=== PATIENT | male | born 1995 | race African-American/Black ===

== ENCOUNTER 2022-10-07 02:31 | Emergency (ER) | payer SELFPAY ==
[2022-10-07] MEDS ORDERED: KETOROLAC 30 MG/ML INJ ONE (03:03)
[2022-10-07 03:55] LABS: SARS-COV-2 RT PCR NEGATIVE (NEGATIVE)
[2022-10-07] MEDS ORDERED: METOCLOPRAMIDE 10 MG/2mL INJ ONE (04:16)
[2022-10-07] MEDS ORDERED: DIPHENHYDRAMINE 50 MG/ML VIAL ONE (04:16)
[2022-10-07] MEDS ORDERED: DIPHENHYDRAMINE 25 MG TAB/CAP ONE (04:19)
--- NOTE | 2022-10-07 04:46 | EDPHYS ---
Physician Documentation [facility] Name: Richy Chau Age: 27 yrs Sex: Male : 1995 Arrival Date: 10/07/2022 Time: 02:33 Bed 9 Private MD: ED Physician Marco Fritz HPI: 10/07 03:50 This 27 yrs old Black Male presents to ER via EMS with complaints of Chest pain. rt 03:50 The patient or guardian reports chest pain that is located primarily in the substernal rt area. The pain does not radiate. Associated signs and symptoms: Pertinent positives: cough, shortness of breath, Sore throat. The chest pain is described as aching. Duration: The patient or guardian reports a single episode, that is still ongoing. Modifying factors: The symptoms are alleviated by the symptoms are aggravated by cough, deep breath. Severity of pain: At its worst the pain was moderate. Patient presents to the ED with cough, pleuritic chest pain for about 3 to 4 days. Patient states that the symptoms have somewhat worsened tonight. He reports a sore throat, denies other acute complaints at this time. Symptoms are moderate in severity. No other aggravating alleviating factors.. Historical: - Allergies: 02:36 No Known Allergies; kd3 - Home Meds: 02:36 None [Active]; kd3 - PMHx: 02:36 None; kd3 - Immunization history:: Adult Immunizations up to date. - Social history:: Smoking status: unknown. - Family history:: not pertinent. ROS: 03:50 Constitutional: Negative for fever, chills, and weight loss, Eyes: Negative for injury, rt pain, redness, and discharge. 03:50 Abdomen/GI: Negative for abdominal pain, nausea, vomiting, diarrhea, and constipation, MS/Extremity: Negative for injury and deformity, Skin: Negative for injury, rash, and discoloration, Neuro: Negative for headache, weakness, numbness, tingling, and seizure, Psych: Negative for depression, anxiety, suicide ideation, homicidal ideation, and hallucinations. 03:50 ENT: Positive for rhinorrhea, sore throat. 03:50 Cardiovascular: Positive for chest pain, Negative for edema. 03:50 Respiratory: Positive for cough, shortness of breath. Exam: 03:50 Constitutional: This is a well developed, well nourished patient who is awake, alert, rt and in no acute distress. Head/Face: Normocephalic, atraumatic. Eyes: Pupils equal round and reactive to light, extra-ocular motions intact. Lids and lashes normal. Conjunctiva and sclera are non-icteric and not injected. Cornea within normal limits. Periorbital areas with no swelling, redness, or edema. ENT: Nares patent. No nasal discharge, no septal abnormalities noted. Tympanic membranes are normal and external auditory canals are clear. Oropharynx with no redness, swelling, or masses, exudates, or evidence of obstruction, uvula midline. Mucous membranes moist. Neck: Trachea midline, no thyromegaly or masses palpated, and no cervical lymphadenopathy. Supple, full range of motion without nuchal rigidity, or vertebral point tenderness. No Meningismus. Chest/axilla: Normal chest wall appearance and motion. Nontender with no deformity. No lesions are appreciated. Cardiovascular: Regular rate and rhythm with a normal S1 and S2. No gallops, murmurs, or rubs. Normal PMI, no JVD. No pulse deficits. Respiratory: Ankle wheezes heard, no respiratory distress Abdomen/GI: Soft, non-tender, with normal bowel sounds. No distension or tympany. No guarding or rebound. No evidence of tenderness throughout. Skin: Warm, dry with normal turgor. Normal color with no rashes, no lesions, and no evidence of cellulitis. MS/ Extremity: Pulses equal, no cyanosis. Neurovascular intact. Full, normal range of motion. Neuro: Awake and alert, GCS 15, oriented to person, place, time, and situation. Cranial nerves II-XII grossly intact. Motor strength 5/5 in all extremities. Sensory grossly intact. Cerebellar exam normal. Normal gait. Psych: Awake, alert, with orientation to person, place and time. Behavior, mood, and affect are within normal limits. 03:50 ECG was reviewed by the Attending Physician. rt Vital Signs: 02:34 BP 115 / 81; Pulse 99; Resp 19; Temp 99(O); Pulse Ox 100% on R/A; Weight 53.98 kg; kd3 03:30 BP 119 / 77; Pulse 82; Resp 20; Pulse Ox 98% on R/A; kd3 MDM: 02:43 Patient medically screened. rt 05:11 Differential diagnosis: acute myocardial infarction, acute pericarditis, chest wall rt pain, myocarditis, pulmonary embolus. Data reviewed: vital signs, lab test result(s). ED course: Presents to the ED with cough, congestion, headache. Symptoms are improving with treatment in the ED. He is found to be influenza A positive. Very low suspicion for pulmonary embolism. Do not suspect space-occupying lesion, advanced imaging of the brain is not indicated. Lumbar puncture is not indicated. Patient has no meningismus, very low suspicion for meningitis, encephalitis, subarachnoid hemorrhage. . 10/07 04:01 Order name: COVID-19/FLU A+B; Complete Time: 04:14 EDMS 10/07 02:50 Order name: EKG; Complete Time: 04:53 rt 10/07 02:50 Order name: EKG - Nurse/Tech; Complete Time: 02:56 rt EC:50 Rate is 77 beats/min. Rhythm is regular, Normal Sinus Rhythm. QRS [place] is Normal. [place] rt interval is normal. QRS interval is normal. QT interval is normal. No Q waves. T waves are Normal. No ST changes noted. Clinical impression: Normal ECG. Interpreted by me. Reviewed by me. Administered Medications: 03:07 Drug: Ketorolac 30 mg Route: IM; Site: right gluteus; bb 03:49 Follow up: Response: No adverse reaction; Temperature is decreased; Pain is decreased kd3 04:23 CANCELLED (Physician Discretion): Reglan (metoCLOPramide) 10 mg IVP once; over 1 to 2 kd3 minutes 04:23 CANCELLED (Physician Discretion): Benadryl (diphenhydrAMINE) 25 mg IVP once kd3 04:23 Drug: Reglan (metoCLOPramide) 10 mg Route: IM; Site: left deltoid; kd3 04:50 Follow up: Response: No adverse reaction; Pain is decreased kd3 04:23 Drug: Benadryl (diphenhydrAMINE) 25 mg Route: PO; kd3 04:50 Follow up: Response: No adverse reaction kd3 Disposition Summary: 10/07/22 04:46 Discharge Ordered Location: Home rt Problem: new rt Symptoms: have improved rt Condition: Stable rt Diagnosis - Influenza due to identified novel influenza A virus rt - Headache rt Followup: rt - With: Private Physician - When: 2 - 3 days - Reason: Discharge Instructions: - Discharge Summary Sheet rt - Influenza, Adult, [id number] rt Forms: - Medication Reconciliation Form rt - Thank You Letter rt - Antibiotic Education rt - Prescription Opioid Use rt Prescriptions: - Zofran 4 mg Oral Tablet - take 1 tablet by ORAL route every 12 hours As needed; 20 tablet; Refills: 0, rt Product Selection Permitted Signatures: Avani Hale RN RN bb Pam Hanson RN RN kd3 Marco Fritz MD MD rt Corrections: (The following items were deleted from the chart) 04:23 04:15 Reglan (metoCLOPramide) 10 mg IVP once; over 1 to 2 minutes ordered. rt kd3 04:23 04:15 Benadryl (diphenhydrAMINE) 25 mg IVP once ordered. rt kd3
--- NOTE | 2022-10-07 04:46 | ER ---
Nurse's Notes [facility] Name: Richy Chau Age: 27 yrs Sex: Male : 1995 Arrival Date: 10/07/2022 Time: 02:33 Bed 9 Private MD: Diagnosis: Influenza due to identified novel influenza A virus;Headache Presentation: 10/07 02:34 Chief complaint: EMS states: he has had a headache and is complaining of chest pain on kd3 inspiration. He is just generally not feeling well. Temp in route was 101.6 but all other vitals were stable. Coronavirus screen: Vaccine status: Patient reports receiving the 2nd dose of the covid vaccine. Ebola Screen: No symptoms or risks identified at this time. Initial Sepsis Screen: Does the patient meet any 2 criteria? No. Patient's initial sepsis screen is negative. Does the patient have a suspected source of infection? No. Patient's initial sepsis screen is negative. Risk Assessment: Do you want to hurt yourself or someone else? Patient reports no desire to harm self or others. Onset of symptoms was October 07, 2022. 02:34 Method Of Arrival: EMS: [facility] kd3 02:34 Acuity: JULIA 3 kd3 Triage Assessment: 02:36 General: Appears uncomfortable, Behavior is calm, cooperative. Pain: Complains of pain kd3 in chest. Neuro: Level of Consciousness is awake, alert, obeys commands, Oriented to person, place, time, situation. Cardiovascular: Patient's skin is warm and dry. Rhythm is sinus rhythm. Respiratory: Airway is patent Trachea midline Respiratory effort is even, unlabored, Respiratory pattern is regular, symmetrical. Historical: - Allergies: 02:36 No Known Allergies; kd3 - Home Meds: 02:36 None [Active]; kd3 - PMHx: 02:36 None; kd3 - Immunization history:: Adult Immunizations up to date. - Social history:: Smoking status: unknown. - Family history:: not pertinent. Screenin:37 Abuse screen: Denies threats or abuse. Denies injuries from another. Nutritional kd3 screening: No deficits noted. Tuberculosis screening: No symptoms or risk factors identified. Fall Risk None identified. Assessment: 03:30 Reassessment: No changes from previously documented assessment. Patient and/or family kd3 updated on plan of care and expected duration. Pain level reassessed. Patient is alert, oriented x 3, equal unlabored respirations, skin warm/dry/pink. General: Appears uncomfortable, Behavior is calm, cooperative. Neuro: Level of Consciousness is awake, alert, obeys commands, Oriented to person, place, time, situation. Cardiovascular: Patient's skin is warm and dry. Rhythm is sinus rhythm. Respiratory: Airway is patent Trachea midline Respiratory effort is even, unlabored. Vital Signs: 02:34 BP 115 / 81; Pulse 99; Resp 19; Temp 99(O); Pulse Ox 100% on R/A; Weight 53.98 kg; kd3 03:30 BP 119 / 77; Pulse 82; Resp 20; Pulse Ox 98% on R/A; kd3 ED Course: 02:33 Patient arrived in ED. kd3 02:36 Triage completed. kd3 02:36 Arm band placed on right wrist. kd3 02:36 EKG done, by ED staff, reviewed by Marco Fritz MD. wm 02:37 No provider procedures requiring assistance completed. Patient did not have IV access kd3 during this emergency room visit. 02:41 Marco Fritz MD is Attending Physician. rt 02:46 Pam Hanson, DENISHA is Primary Nurse. kd3 04:49 Patient has correct armband on for positive identification. kd3 Administered Medications: 03:07 Drug: Ketorolac 30 mg Route: IM; Site: right gluteus; bb 03:49 Follow up: Response: No adverse reaction; Temperature is decreased; Pain is decreased kd3 04:23 CANCELLED (Physician Discretion): Reglan (metoCLOPramide) 10 mg IVP once; over 1 to 2 kd3 minutes 04:23 CANCELLED (Physician Discretion): Benadryl (diphenhydrAMINE) 25 mg IVP once kd3 04:23 Drug: Reglan (metoCLOPramide) 10 mg Route: IM; Site: left deltoid; kd3 04:50 Follow up: Response: No adverse reaction; Pain is decreased kd3 04:23 Drug: Benadryl (diphenhydrAMINE) 25 mg Route: PO; kd3 04:50 Follow up: Response: No adverse reaction kd3 Medication: 03:31 VIS not applicable for this client. kd3 Outcome: 04:46 Discharge ordered by . rt 04:49 Discharged to home ambulatory. kd3 04:49 Condition: stable 04:49 Discharge instructions given to patient, family, Instructed on discharge instructions, follow up and referral plans. medication usage, Demonstrated understanding of instructions, follow-up care, medications, Prescriptions given X 1. 04:50 Patient left the ED. kd3 Signatures: Avani Hale, RN RN bb Aurea De La Cruz Kyli, RN RN kd3 Marco Fritz MD MD rt
[2022-10-07 04:57] VITALS: TEMP 99
[2022-10-07 04:59] VITALS: BP 119/77; O2SAT 98
--- NOTE | 2022-10-07 14:23 | EKG ---
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
== END 2022-10-07 04:50 | disposition home or self-care (01) ==
LOC: ER 02:31
DX: J10.1 Influenza due to other identified influenza virus with other respiratory manifestations (principal); R51.9 Headache, unspecified; Z20.822 Contact with and (suspected) exposure to COVID-19
CPT/HCPCS: 0240U; 93005; 96372; 99284; J1200; J2765